=== PATIENT | male | born 1985 | race Caucasian/White ===

== ENCOUNTER 2018-11-28 02:42 | Emergency (ER) | payer OTHER ==
[~2018-11-28] VITALS: Ht 175.3 cm; Wt 77.3 kg
[2018-11-28] MEDS ORDERED: INSU100V SQ (02:45)
[2018-11-28] MEDS ORDERED: INSLAN SQ (02:45)
[2018-11-28] MEDS ORDERED: INSULIN REGULAR, HUMAN 100 UNITS/ML IVP ONE ×2 (03:00→05:30)
[2018-11-28] MEDS ORDERED: SODIUM CHLORIDE 0.9% 1,000 ML IV ONE (03:00)
[2018-11-28 03:26] LABS: BASOPHILS % (AUTO) 0.7 % (0.0-2.0); EOSINOPHILS % (AUTO) 0.5 % (1.0-6.0); HEMATOCRIT 43.1 % (41-53); HEMOGLOBIN 14.8 g/dL (13.5-17.5); LYMPHOCYTES # (AUTO) 1.3 K/uL (1.0-4.8); LYMPHOCYTES % (AUTO) 13.9 % (22.0-44.0); MEAN CORPUSCULAR HGB CONC 34.3 G/dL (31.0-37.0); MEAN CORPUSCULAR VOLUME 90 fL (80-100); MONOCYTES # (AUTO) 0.4 K/uL (0.1-1.0); MONOCYTES % (AUTO) 4.3 % (2.0-9.0); NEUTROPHILS # (AUTO) 7.4 K/uL (1.8-7.7); NEUTROPHILS % (AUTO) 80.6 % (40.0-70.0); PLATELET COUNT (AUTO) 325 K/uL (150-450); RED BLOOD CELL COUNT(AUTO) 4.78 MIL/uL (4.50-5.90); RED CELL DISTRIBUTION WIDTH 11.8 % (11.5-14.5)
[2018-11-28 03:46] LABS: ALANINE AMINOTRANSFERASE 23 U/L (12-78); ALBUMIN 4.1 g/dL (3.4-5.0); ALKALINE PHOSPHATASE 96 U/L (46-116); ANION GAP 15 mmol/L (8-16); ASPARTATE AMINOTRANSFERASE 14 U/L (15-37); BILIRUBIN,TOTAL 0.4 mg/dL (0.1-1.0); CALCIUM, TOTAL 9.9 mg/dL (8.8-10.5); CARBON DIOXIDE 24 mmol/L (22-29); CHLORIDE 98 mmol/L (98-107); CREATININE 0.89 mg/dL (0.60-1.30); GLOMERULAR FILTR. RATE CALC > 60 mL/min (>60); POTASSIUM 4.6 mmol/L (3.5-5.1); SODIUM SERUM 137 mmol/L (136-145); UREA NITROGEN, BLOOD 16 mg/dL (7-18)
[2018-11-28 03:48] LABS: GLUCOSE,RANDOM 417 mg/dL (70-110)
[2018-11-28 03:51] LABS: ACETONE,BLOOD NEGATIVE (NEGATIVE)
[2018-11-28 04:30] VITALS: BP 137/89
[2018-11-28 05:14] LABS: GLUCOSE,POINT OF CARE 236 MG/DL (70-110)
== END 2018-11-28 06:24 | disposition home or self-care (01) ==
LOC: EMS 02:42
DX: Z02.89 Encounter for other administrative examinations (principal); E11.65 Type 2 diabetes mellitus with hyperglycemia; Z79.4 Long term (current) use of insulin
CPT/HCPCS: 36415; 80053; 82009; 82962; 85025; 96361; 96374; 96376; 99283; J1815; J7030